=== PATIENT | female | born 1965 | race Two or more races ===

== ENCOUNTER 2024-04-06 14:00 | Outpatient (RCR) | payer MEDICAID, SELFPAY ==
--- NOTE | 2024-04-04 14:31 | PT.ODAYNRPT ---
PT Outpatient Daily Note OP Daily Note Outpatient Physical Therapy Treatment Date: 04/04/24 Visit Reasons: low back pain Subjective: Pt reports low back pain, just got out of her 12 hr shift. Objective: Please see flow sheet for ther ex list. Assessment: Pt tolerated interventions well despite c/o pain. Plan: Continue with POC. Length of Time (minutes) of Treatment: 30 Minutes Procedure Charges Therapeutic Exercise 30 minutes: Yes
--- NOTE | 2024-04-06 14:40 | PT.ODAYNRPT ---
PT Outpatient Daily Note OP Daily Note Outpatient Physical Therapy Treatment Date: 04/06/24 Visit Reasons: low back pain Subjective: Pt c/o low back pain, mentioned that she worked 12 hour shift yesterday and has to go to work in a few hours. Objective: Please see flow sheet for ther ex list. Assessment: Performed STM to l/s , pt tolerated well minimal TTP along paraspinals. Plan: Continue with POC. Length of Time (minutes) of Treatment: 30 Minutes Procedure Charges Therapeutic Exercise 30 minutes: Yes
--- NOTE | 2024-05-10 12:56 | PT.ODS1RPT ---
PT OP Progress/Discharge Note Date of Service: 05/10/24 Progress Note/DC Note Progress Note/Discharge Note: DC Note Patient Information Visit Reasons: low back pain Service Discharge Date: 05/10/24 Status Assessment: Pt has been seen for 4 visits (eval + 3 visits). Pt last treated on 04/06/24. Pt has not return to therapy and will be d/c from care. Pt did not meet set goals in therapy; thank you for your referrals.
== END 2024-04-16 23:59 | disposition home or self-care (01) ==
LOC: CPTX 14:00
PROVIDERS: PCP Physical Medicine & Rehabilitation Pain Medicine; Referring Provider Physical Medicine & Rehabilitation Pain Medicine; Visit Provider Physical Medicine & Rehabilitation Pain Medicine
DX: M54.50 Low back pain, unspecified (principal); G89.29 Other chronic pain; R20.0 Anesthesia of skin
CPT/HCPCS: 97110